=== PATIENT | female | born 1990 | race Caucasian/White ===

== ENCOUNTER 2017-02-13 08:18 | Outpatient (CLI) | payer BC ==
[~2017-02-13] VITALS: Ht 170.2 cm; Wt 82.7 kg
[2017-02-13 08:36] VITALS: BP 106/65; PULSE 66; TEMP 97.9
[2017-02-13] MEDS ORDERED: PRENATAL MVI (08:41)
[2017-02-13] MEDS ORDERED: LEVBID0.375 MG (08:42)
[2017-02-13 08:56] VITALS: BP 105/62; PULSE 72
== END 2017-02-13 09:10 | disposition home or self-care (01) ==
LOC: LDRO 08:18 → LDR 08:20 → LDRO 09:10
DX: Z34.03 Encounter for supervision of normal first pregnancy, third trimester (principal); Z3A.38 38 weeks gestation of pregnancy
CPT/HCPCS: OP

== ENCOUNTER 2017-02-25 10:28 | Outpatient (CLI) | payer BC ==
[~2017-02-25] VITALS: Ht 170.2 cm; Wt 84.1 kg
[~2017-02-25 10:28] MED LIST: LEVBID0.375 MG; PRENATAL MVI
[2017-02-25 10:38] VITALS: BP 106/58; PULSE 110; TEMP 99.2
[2017-02-25 11:00] VITALS: BP 106/58; PULSE 110; TEMP 99.2
[2017-02-25 12:00] VITALS: BP 106/59; PULSE 95; TEMP 99.3
== END 2017-02-25 12:40 | disposition home or self-care (01) ==
LOC: LDRO 10:28 → LDR 10:35 → LDRO 12:40
DX: Z34.03 Encounter for supervision of normal first pregnancy, third trimester (principal); Z3A.40 40 weeks gestation of pregnancy
CPT/HCPCS: OP; J7120

== ENCOUNTER 2017-03-03 13:23 | Inpatient (IN) | payer BC ==
[2017-03-03] VITALS (27 sets, daily range): BP systolic 97–127; BP diastolic 53–74; PULSE 58–80; TEMP 97.9–100
[~2017-03-03] VITALS: Ht 170.2 cm; Wt 85.5 kg
[2017-03-03 16:15] LABS: BASO % 0.2 % (0.0-2.0); EOS % 0.1 % (0-4.0); GRAN # 6.7 (1.4-6.5); HEMATOCRIT 37.4 % (37.0-47.0); LYMPH # 1.7 (1.2-3.4); LYMPH % 18.5 % (20.0-51.0); MEAN CELL VOLUME 97 fl (80.0-100.0); MEAN CORPUSCULAR HEMOGLOBIN 34 pg (27.0-31.0); MEAN CORPUSCULAR HGB CONC 35 g/dl (33.0-37.0); MEAN PLATELET VOLUME 11.7 fl (7.4-10.4); MONO # 0.5 (0.1-0.6); MONO % 5.8 % (1.7-9.3); PLATELET COUNT 151 K/mm3 (130-400); RED BLOOD COUNT 3.84 M/mm3 (4.10-5.30); REDCELL DISTRIBUTION WIDTH-CV 12.9 % (11.5-14.5)
[2017-03-03] MEDS ORDERED: PROCTOCREAM-HC2.5% RC (17:04)
[2017-03-03] MEDS ORDERED: ZITHROMAX Z PA250 MG PO (17:05)
[2017-03-04] VITALS (10 sets, daily range): BP systolic 91–120; BP diastolic 60–76; PULSE 63–81; TEMP 97.8–99.2
[2017-03-04] MEDS ORDERED: PERCOCET 325 MG1 TA2 PO (08:57)
[2017-03-04] MEDS ORDERED: IBU800 M1 PO (08:57)
[2017-03-05 07:11] LABS: BASO % 0.2 % (0.0-2.0); EOS # 0.1 (0.0-0.7); EOS % 0.6 % (0-4.0); GRAN # 9.1 (1.4-6.5); GRAN % 74.6 % (42.2-75.2); LYMPH % 16.1 % (20.0-51.0); MEAN CELL VOLUME 98 fl (80.0-100.0); MEAN CORPUSCULAR HGB CONC 34 g/dl (33.0-37.0); MEAN PLATELET VOLUME 11.6 fl (7.4-10.4); MONO % 7.8 % (1.7-9.3); PLATELET COUNT 145 K/mm3 (130-400); RED BLOOD COUNT 3.57 M/mm3 (4.10-5.30); REDCELL DISTRIBUTION WIDTH-CV 12.9 % (11.5-14.5)
[2017-03-05 07:12] LABS: HEMATOCRIT 34.9 % (37.0-47.0); HEMOGLOBIN 11.9 g/dl (12.5-16.0); MEAN CORPUSCULAR HEMOGLOBIN 33 pg (27.0-31.0)
[2017-03-05 08:25] VITALS: BP 101/64; PULSE 58; TEMP 97.9
== END 2017-03-05 13:45 | disposition home or self-care (01) | DRG 767 ==
LOC: LDRO 13:23 → OB 15:30 → LDR 15:30 → OB 03-04 03:35
PROVIDERS: Student in an Organized Health Care Education/Training Program
PROC: 10E0XZZ Delivery of Products of Conception, External Approach (ICD-10-PCS; principal; 2017-03-03)
PROC: 10D17Z9 Manual Extraction of Products of Conception, Retained, Via Natural or Artificial Opening (ICD-10-PCS; 2017-03-03)
PROC: 0KQM0ZZ Repair Perineum Muscle, Open Approach (ICD-10-PCS; 2017-03-03)
PROC: 0HQ9XZZ Repair Perineum Skin, External Approach (ICD-10-PCS; 2017-03-03)
DX: O48.0 Post-term pregnancy (principal); O87.2 Hemorrhoids in the puerperium; O87.0 Superficial thrombophlebitis in the puerperium; O62.1 Secondary uterine inertia; O70.1 Second degree perineal laceration during delivery; O70.0 First degree perineal laceration during delivery; O73.1 Retained portions of placenta and membranes, without hemorrhage; O99.62 Diseases of the digestive system complicating childbirth; K58.9 Irritable bowel syndrome, unspecified; Z3A.41 41 weeks gestation of pregnancy; Z37.0 Single live birth
CPT/HCPCS: J0595; J2405; J2590; J7120

== ENCOUNTER → 2017-08-08 | Outpatient (CLI) | payer BC ==
[~2017-08-08] MED LIST changes: +IBU800 M1 PO; +PERCOCET 325 MG1 TA2 PO; +PROCTOCREAM-HC2.5% RC; +ZITHROMAX Z PA250 MG PO
== END ==
LOC: COL.RAD 14:10
DX: R10.9 Unspecified abdominal pain (principal)

== ENCOUNTER 2019-12-09 20:01 | Inpatient (IN) | payer BC ==
[2019-12-09] VITALS (10 sets, daily range): BP systolic 81–113; BP diastolic 48–72; PULSE 70–90; TEMP 98.3
[~2019-12-09] VITALS: Ht 170.2 cm; Wt 83.2 kg
--- NOTE | 2019-12-09 20:00 | NUR ---
1999 G2L1 39.6 WEEK GEST TO LR5 IN [facility]IVE [facility]. 2014 EFM ON. SVE DONE /-1 WITH INTACT BOW. WANTING EPIDURAL. ROLES NOTIFIED AND ORDERS RECEIVED. 2019 IV STARTED. PERMITS SIGNED. ADM ASSESSMENT COMPLETED. BOXER OPERATOR CALLED FOR EPID PLACEMENT
[2019-12-09] MEDS ORDERED: PRENATAL TABLET PO (20:32)
[2019-12-09] MEDS ORDERED: MIRALAX119G PO (20:36)
[2019-12-09 20:39] LABS: BASO % 0.2 % (0.0-2.0); EOS % 0.4 % (0-4.0); GRAN # 6.1 (1.4-6.5); GRAN % 67.7 % (42.2-75.2); HEMATOCRIT 35.1 % (37.0-47.0); HEMOGLOBIN 11.9 g/dl (12.5-16.0); LYMPH % 21.7 % (20.0-51.0); MEAN CELL VOLUME 94 fl (80.0-100.0); MEAN CORPUSCULAR HEMOGLOBIN 32 pg (27.0-31.0); MEAN CORPUSCULAR HGB CONC 34 g/dl (33.0-37.0); MEAN PLATELET VOLUME 12.5 fl (7.4-10.4); MONO # 0.9 (0.1-0.6); MONO % 9.4 % (1.7-9.3); PLATELET COUNT 164 K/mm3 (130-400); RED BLOOD COUNT 3.72 M/mm3 (4.10-5.30); REDCELL DISTRIBUTION WIDTH-CV 12.2 % (11.5-14.5)
--- NOTE | 2019-12-09 20:40 | NUR ---
2039 SITTING ON SIDE OF BED FOR EPIDURAL PLACEMENT. UNABLE TO DATA GOVERNANCE ANALYST FHT'S WHILE SITTING UP. SEE ANESTHSIA RECORD FOR MORE INFO.
--- NOTE | 2019-12-09 21:25 | NUR ---
2124 COMPLETE AND INSTRUCTED TO PUSH WITH CONTRACTIONS. DR CUNNINGHAM IN ROOM AND READIED FOR DELIVERY 2134 DELIVERY VIABLE MALE OVER 2 LAC WITH 8/9/9 APGARS. IV CONTS TO INFUSE.
--- NOTE | 2019-12-10 | NUR ---
Pt up to the bathroom with standby assistance and without complications. Pt was able to void. Danika-care done. Pt transferred to room 216 via wheelchair. Oriented to room and bed. Call light within reach. Plan of care reviewed with pt and at the bedside.
[2019-12-10 00:30] VITALS: BP 113/66; PULSE 75
[2019-12-10 05:03] VITALS: BP 110/59; PULSE 69; TEMP 98.3
[2019-12-10 08:30] VITALS: BP 98/55; PULSE 71; TEMP 98
--- NOTE | 2019-12-10 10:26 | NUR ---
Initial visit; Mom thanked Managed Care Specialist for offering congratulations and God's blessings for the of her son. Managed Care Specialist thanked family for choosing [facility].
[2019-12-10] MEDS ORDERED: IBU600 MG PO (11:11)
[2019-12-10 13:00] VITALS: BP 100/62; PULSE 64; TEMP 98.3
[2019-12-10 17:00] VITALS: BP 104/74; PULSE 73; TEMP 98.7
--- NOTE | 2019-12-10 17:00 | NUR ---
Rests in bed, alert. Request tylenol and crackers. 1710 Tylenol 650 mg given per request and as ordered.
[2019-12-10 20:30] VITALS: BP 102/66; PULSE 69; TEMP 98.7
[2019-12-11 07:30] VITALS: BP 109/66; PULSE 59; TEMP 97.7
--- NOTE | 2019-12-11 10:10 | NUR ---
0919-Reviewed discharge instructions with patient. Denies questions. Provided 6 week follow up apt and prescriptions. 1010-Patient ambulatory off unit with infant and spouse.
== END 2019-12-11 10:10 | disposition home or self-care (01) | DRG 807 ==
LOC: LDRO 20:01 → LDR 20:01 → LDRO 20:28 → OB 20:29 → LDR 20:29 → OB 12-10 00:46
PROVIDERS: Obstetrics & Gynecology; ADMIT Student in an Organized Health Care Education/Training Program
PROC: 10E0XZZ Delivery of Products of Conception, External Approach (ICD-10-PCS; principal; 2019-12-09)
PROC: 0KQM0ZZ Repair Perineum Muscle, Open Approach (ICD-10-PCS; 2019-12-09)
PROC: 0UQMXZZ Repair Vulva, External Approach (ICD-10-PCS; 2019-12-09)
PROC: 10907ZC Drainage of Amniotic Fluid, Therapeutic from Products of Conception, Via Natural or Artificial Opening (ICD-10-PCS; 2019-12-09)
DX: O70.1 Second degree perineal laceration during delivery (principal); Z37.0 Single live birth; Z3A.39 39 weeks gestation of pregnancy
CPT/HCPCS: J2590; J2795; J7120

== ENCOUNTER → 2021-08-27 | Outpatient (CLI) | payer BC ==
[~2021-08-27] MED LIST changes: +IBU600 MG PO; +MIRALAX119G PO; +PRENATAL TABLET PO
== END ==
LOC: COL.RAD 14:17
DX: N83.202 Unspecified ovarian cyst, left side (principal); R93.89 Abnormal findings on diagnostic imaging of other specified body structures